=== PATIENT | female | born 1950 | race Caucasian/White ===

== ENCOUNTER → 2021-05-12 | Outpatient (CLI) | payer OTHER ==
[~2021-05-12] MED LIST: CATAPRES 0.1MG0.1 MG PO; CENTRUM SILVER1 EAC1 PO; COZAAR25 MG PO; DRAMAMINE LESS25 MG PO; ELIQUIS 2.5 MG2.5 MG PO; HYDROCODON-ACE1 EAC2 PO; LASIX20 MG PO; VITAMIN B12 PO
[2021-05-12 12:25] LABS: HEMOGLOBIN 14.4 gm/dl (12.3-15.3); RED BLOOD COUNT 4.87 M/UL (4.00-5.10)
[2021-05-12 12:50] LABS: BUN/CREATININE RATIO 16 (0-10)
== END ==
LOC: OPSV2 10:30 → EDSTATUS 10:30 → OPSV2 11:17
PROVIDERS: Orthopaedic Surgery
DX: Z01.818 Encounter for other preprocedural examination (principal); M16.12 Unilateral primary osteoarthritis, left hip
CPT/HCPCS: 36415; 80048; 81001; 85025; 87081; 93005

== ENCOUNTER 2021-05-24 06:45 | Day surgery (SDC) | payer MEDICARE ==
[~2021-05-24] VITALS: Ht 175.3 cm; Wt 107.0 kg
[~2021-05-24 06:45] MED LIST changes: -DRAMAMINE LESS25 MG PO; -ELIQUIS 2.5 MG2.5 MG PO; -HYDROCODON-ACE1 EAC2 PO
[2021-05-24] MEDS ORDERED: DRAMAMINE LESS25 MG PO (07:37)
[2021-05-24 08:15] LABS: BUN/CREATININE RATIO 19 (0-10)
[2021-05-24] MEDS ORDERED: HYDROCODON-ACE1 EAC2 PO (13:12)
[2021-05-25 07:05] LABS: HEMOGLOBIN 10.8 gm/dl (12.3-15.3); RED BLOOD COUNT 3.88 M/UL (4.00-5.10); WHITE BLOOD COUNT 13.3 K/UL (4.5-11.0)
[2021-05-25 07:21] LABS: BUN/CREATININE RATIO 22 (0-10)
[2021-05-25] MEDS ORDERED: ELIQUIS 2.5 MG2.5 MG PO (09:59)
== END 2021-05-25 15:01 | disposition home or self-care (01) ==
LOC: OR 06:45 → EDSTATUS 09:15 → M/S 15:54 → OR 05-25 15:01
PROVIDERS: Orthopaedic Surgery
PROC: 3E0T3BZ Introduction of Anesthetic Agent into Peripheral Nerves and Plexi, Percutaneous Approach (ICD-10-PCS; 2021-05-24)
PROC: 0SRB0JA Replacement of Left Hip Joint with Synthetic Substitute, Uncemented, Open Approach (ICD-10-PCS; principal; 2021-05-24 09:15)
DX: M16.12 Unilateral primary osteoarthritis, left hip (principal); M17.12 Unilateral primary osteoarthritis, left knee; I10 Essential (primary) hypertension; F17.210 Nicotine dependence, cigarettes, uncomplicated; F32.9 Major depressive disorder, single episode, unspecified; E66.9 Obesity, unspecified; Z68.34 Body mass index [BMI] 34.0-34.9, adult; Z20.822 Contact with and (suspected) exposure to COVID-19; Z96.651 Presence of right artificial knee joint; Z96.641 Presence of right artificial hip joint; Z88.2 Allergy status to sulfonamides; Z88.5 Allergy status to narcotic agent; Z88.8 Allergy status to other drugs, medicaments and biological substances
CPT/HCPCS: 36415; 73502; 76000; 80048; 85025; 86850; 86900; 86901; 97110; 97116; 97116-GP-CQ; 97162; 97165; 97530-GP-CQ; C1776; J0171; J0690; J1100; J1170; J2270; J2704; J2795; J3010; J7030; J7050; J7120